=== PATIENT | female | born 1940 | race Caucasian/White ===

== ENCOUNTER 2022-09-05 13:11 | Emergency (ER) | payer OTHER ==
[~2022-09-05] VITALS: Ht 165.1 cm; Wt 68.9 kg
[2022-09-05 15:31] VITALS: BP 110/58
== END 2022-09-05 20:22 | disposition left against medical advice (07) ==
LOC: ER 13:11
DX: M25.562 Pain in left knee (principal); M25.561 Pain in right knee; R94.31 Abnormal electrocardiogram [ECG] [EKG]; Z53.21 Procedure and treatment not carried out due to patient leaving prior to being seen by health care provider; W18.39XA Other fall on same level, initial encounter; Y93.89 Activity, other specified; Y92.89 Other specified places as the place of occurrence of the external cause; Y99.8 Other external cause status
CPT/HCPCS: 73562; 73630; 93005

== ENCOUNTER 2023-08-07 22:19 | Inpatient (IN) | payer OTHER ==
[~2023-08-07] VITALS: Ht 167.6 cm; Wt 69.5 kg
[2023-08-07] MEDS ORDERED: MORPHINE SULFATE INJ 2 MG/ml SYRG IV PRN (23:30)
[2023-08-07] MEDS ORDERED: ACETAMINOPHEN 325 MG TAB PO PRN (23:30)
[2023-08-07] MEDS ORDERED: hydrALAZINE HCL 20 MG/ML VL IV PRN (23:30)
[2023-08-07] MEDS ORDERED: IPRATROPIUM BROM 0.5 MG/2.5ML INH SOL NEB PRN (23:30)
[2023-08-07] MEDS ORDERED: NITROGLYCERIN 0.4 MG SL TAB SL PRN (23:30)
[2023-08-07] MEDS ORDERED: ALBUTEROL SULF 2.5 MG/0.5ML(0.5%) NEB SOLN NEB PRN (23:30)
[2023-08-07] MEDS ORDERED: ONDANSETRON HCL 4 MG/2 ML VIAL IV PRN (23:30)
[2023-08-07] MEDS ORDERED: DOCUSATE SOD 100 MG CAP PO PRN (23:30)
[2023-08-07] MEDS ORDERED: DEXTROSE (50%) 50ML SYRG IV PRN (23:30)
[2023-08-08] VITALS (11 sets, daily range): BP systolic 121–139; BP diastolic 62–73; PULSE 72–92; RESP 16–18; TEMP 97.7–98.7; O2SAT 92–98
[2023-08-08 00:52] LABS: Basophils # (auto) 0.1 10 ^3/uL (0-0.2); Basophils % (auto) 0.5 % (0.0-2.0); Eosinophils # (auto) 0.3 10 ^3/uL (0-0.8); Eosinophils % (auto) 2.6 % (0.0-7.0); Hematocrit 37.3 % (36.0-46.0); Hemoglobin 12.2 g/dL (12.2-16.2); Lymphocytes # (auto) 1.8 10 ^3/uL (0.4-5.4); Lymphocytes % (auto) 16.8 % (10.0-50.0); Mean Corpuscular Hemoglobin 27.8 pg (28.0-32.0); Mean Corpuscular Hgb Conc. 32.6 g/dL (32.0-36.0); Monocytes # (auto) 0.9 10 ^3/uL (0-1.3); Monocytes % (auto) 8.4 % (0.0-12.0); Neutrophils # (auto) 7.9 10 ^3/uL (1.6-8.6); Neutrophils % (auto) 71.7 % (37.0-80.0); Red Blood Cells 4.39 10^6/uL (4.0-5.20); Red Cell Distribution Width 13.3 % (11.8-14.3)
[2023-08-08 01:00] LABS: Chloride 104 mmol/L (98-107); Potassium 4.1 mmol/L (3.5-5.1); Sodium 144 mmol/L (136-145)
[2023-08-08 01:02] LABS: Calcium 9.8 mg/dL (8.5-10.1)
[2023-08-08 01:06] LABS: Glucose 87 mg/dL (74-106)
[2023-08-08 01:07] LABS: BUN/Creatinine Ratio 28.6 (10.0-20.0); Blood Urea Nitrogen 20 mg/dL (9-23)
[2023-08-08 01:57] LABS: Anion Gap 6 (5-15); Carbon Dioxide 34 mmol/L (20-30)
[2023-08-08] MEDS: HYDROcodone-ACET 5/325MG TAB PO PRN ×2 (02:35→10:54)
[2023-08-08] MEDS ORDERED: KETOROLAC TROMETH 30 MG/ML 1ML VIAL IV ONE (06:45)
[2023-08-08] MEDS: InsuLIN REG 1unit/0.01ml Soln (100units/ml) SC SCH ×4 (07:00→22:26)
[2023-08-08] MEDS: ACCU-CHEK COMFORT CURVE STRIP VI SCH ×4 (07:00→22:26)
[2023-08-08] MEDS: ENOXAPARIN SOD 40 MG/0.4 ML SYRINGE SC SCH (10:00)
[2023-08-08] MEDS: GABAPENTIN 100 MG CAP PO SCH ×2 (10:54→22:14)
[2023-08-08] MEDS: ATORVASTATIN 20 MG TAB PO SCH (22:14)
[2023-08-08 22:54] LABS: Urine Bacteria MANY /hpf (None Seen); Urine Blood Negative /uL (Negative); Urine Clarity HAZY (Clear); Urine Color Yellow (Yellow); Urine Protein, UAD Negative (Negative); Urine Specific Gravity 1.017 (1.001-1.035); Urine Urobilinogen Normal (Negative); Urine WBC 117 /hpf (0 - 5)
[2023-08-08 23:40] LABS: COVID19 ANTIGEN SOFIA FIA NEGATIVE (NEGATIVE)
[2023-08-09] VITALS (7 sets, daily range): BP systolic 132–157; BP diastolic 68–76; PULSE 69–87; RESP 18–22; TEMP 97.7–98.4; O2SAT 94–98
[2023-08-09 06:31] LABS: Chloride 103 mmol/L (98-107); Potassium 3.7 mmol/L (3.5-5.1); Sodium 141 mmol/L (136-145)
[2023-08-09 06:32] LABS: Anion Gap 5 (5-15); Calcium 9.6 mg/dL (8.7-10.4); Carbon Dioxide 33 mmol/L (20-30)
[2023-08-09 06:37] LABS: Blood Urea Nitrogen 14 mg/dL (9-23); Glucose 109 mg/dL (74-106)
[2023-08-09] MEDS: InsuLIN REG 1unit/0.01ml Soln (100units/ml) SC SCH ×4 (06:41→20:57)
[2023-08-09] MEDS: ACCU-CHEK COMFORT CURVE STRIP VI SCH ×4 (06:42→21:07)
[2023-08-09 06:54] LABS: Basophils # (auto) 0 10 ^3/uL (0-0.2); Basophils % (auto) 0.6 % (0.0-2.0); Eosinophils # (auto) 0.3 10 ^3/uL (0-0.8); Eosinophils % (auto) 4.1 % (0.0-7.0); Hemoglobin 11.1 g/dL (12.2-16.2); Lymphocytes % (auto) 24.6 % (10.0-50.0); Mean Corpuscular Hemoglobin 27.1 pg (28.0-32.0); Mean Corpuscular Hgb Conc. 31.8 g/dL (32.0-36.0); Mean Corpuscular Volume 85.2 fL (80.0-100.0); Monocytes # (auto) 0.8 10 ^3/uL (0-1.3); Monocytes % (auto) 9.3 % (0.0-12.0); Neutrophils # (auto) 5.1 10 ^3/uL (1.6-8.6); Neutrophils % (auto) 61.4 % (37.0-80.0); Red Blood Cells 4.11 10^6/uL (4.0-5.20); Red Cell Distribution Width 13.2 % (11.8-14.3); White Blood Cell 8.3 10^3/uL (4.4-10.8)
[2023-08-09] MEDS: GABAPENTIN 100 MG CAP PO SCH ×2 (10:45→20:56)
[2023-08-09] MEDS: ENOXAPARIN SOD 40 MG/0.4 ML SYRINGE SC SCH (10:45)
[2023-08-09] MEDS ORDERED: CEFTRIAXONE SODIUM 2 GM in D5W 5% 100 ML IV ONE (12:00)
[2023-08-09] MEDS: HYDROcodone-ACET 5/325MG TAB PO PRN ×2 (12:01→17:39)
[2023-08-09] MEDS: ATORVASTATIN 20 MG TAB PO SCH (20:56)
[2023-08-10 05:00] VITALS: BP 149/72; PULSE 80; RESP 18; TEMP 98.3; O2SAT 99
[2023-08-10 06:07] LABS: Basophils # (auto) 0.1 10 ^3/uL (0-0.2); Basophils % (auto) 0.6 % (0.0-2.0); Eosinophils # (auto) 0.4 10 ^3/uL (0-0.8); Eosinophils % (auto) 3.5 % (0.0-7.0); Lymphocytes % (auto) 9.6 % (10.0-50.0); Mean Corpuscular Hemoglobin 27.4 pg (28.0-32.0); Mean Corpuscular Hgb Conc. 32.3 g/dL (32.0-36.0); Mean Corpuscular Volume 84.8 fL (80.0-100.0); Monocytes # (auto) 0.8 10 ^3/uL (0-1.3); Monocytes % (auto) 8.1 % (0.0-12.0); Neutrophils # (auto) 8.1 10 ^3/uL (1.6-8.6); Neutrophils % (auto) 78.2 % (37.0-80.0); Red Blood Cells 4.01 10^6/uL (4.0-5.20); Red Cell Distribution Width 13.1 % (11.8-14.3); White Blood Cell 10.3 10^3/uL (4.4-10.8)
[2023-08-10 06:12] LABS: Anion Gap 4 (5-15); Carbon Dioxide 35 mmol/L (20-30); Chloride 101 mmol/L (98-107); Potassium 3.5 mmol/L (3.5-5.1); Sodium 140 mmol/L (136-145)
[2023-08-10 06:13] LABS: Calcium 9.3 mg/dL (8.7-10.4)
[2023-08-10] MEDS: ACCU-CHEK COMFORT CURVE STRIP VI SCH ×3 (06:17→17:37)
[2023-08-10] MEDS: InsuLIN REG 1unit/0.01ml Soln (100units/ml) SC SCH ×3 (06:17→17:45)
[2023-08-10 06:18] LABS: BUN/Creatinine Ratio 26.1 (10.0-20.0); Blood Urea Nitrogen 18 mg/dL (9-23); Glucose 172 mg/dL (74-106)
[2023-08-10 08:20] VITALS: PULSE 73
[2023-08-10 08:45] VITALS: BP 146/66; PULSE 81; RESP 20; TEMP 98.6; O2SAT 97
[2023-08-10] MEDS ORDERED: cefTRIAXone 1GM/50ML D5W 50 ML IV SCH (09:00)
[2023-08-10] MEDS: GABAPENTIN 100 MG CAP PO SCH (10:03)
[2023-08-10] MEDS: ENOXAPARIN SOD 40 MG/0.4 ML SYRINGE SC SCH (10:04)
[2023-08-10] MEDS: HYDROcodone-ACET 5/325MG TAB PO PRN (10:13)
[2023-08-10] MEDS ORDERED: CIPR500T4 PO (11:14)
[2023-08-10] MEDS ORDERED: ACET-1304 PO (11:14)
[2023-08-10] MEDS ORDERED: GAB100C PO (11:14)
[2023-08-10 12:30] VITALS: BP 129/62; PULSE 79; RESP 20; TEMP 98.3; O2SAT 99
[2023-08-10 16:20] VITALS: BP 120/73; PULSE 82; RESP 20; TEMP 98.4; O2SAT 98
== END 2023-08-10 20:45 | disposition home health service (06) | DRG 690 ==
LOC: TELE-CENTR 23:39
PROVIDERS: ADMIT Nurse Practitioner Family; ATTEND Hospitalist
PROC: 4B02XSZ Measurement of Cardiac Pacemaker, External Approach (ICD-10-PCS; principal; 2023-08-09)
DX: N39.0 Urinary tract infection, site not specified (principal); M54.6 Pain in thoracic spine; E11.9 Type 2 diabetes mellitus without complications; I10 Essential (primary) hypertension; J44.9 Chronic obstructive pulmonary disease, unspecified; R55 Syncope and collapse; Z88.6 Allergy status to analgesic agent; Z95.0 Presence of cardiac pacemaker; Z20.822 Contact with and (suspected) exposure to COVID-19
CPT/HCPCS: 36415; 80048; 81001; 82962; 84484; 85025; 87086; 87426; 93306; 97110; 97116; 97530; G0378; J0696; J1815; J7060

== ENCOUNTER 2023-08-21 12:13 | Inpatient (IN) | payer OTHER ==
[~2023-08-21] VITALS: Ht 167.6 cm; Wt 63.0 kg
[2023-08-21] VITALS (7 sets, daily range): BP systolic 124–133; BP diastolic 67–74; PULSE 86–98; RESP 16–24; TEMP 98.9; O2SAT 93–99
[~2023-08-21 12:13] MED LIST: ACET-1304 PO; CIPR500T4 PO; GAB100C PO
[2023-08-21 13:02] LABS: COVID19 ANTIGEN SOFIA FIA NEGATIVE (NEGATIVE); Rapid Influenza A Negative (Negative); Rapid Influenza B Negative (Negative)
[2023-08-21 13:26] LABS: Hemoglobin 13.3 g/dL (12.2-16.2)
[2023-08-21 13:28] LABS: Hematocrit 42.4 % (36.0-46.0); Mean Corpuscular Hemoglobin 26.8 pg (28.0-32.0); Mean Corpuscular Hgb Conc. 31.3 g/dL (32.0-36.0); Mean Corpuscular Volume 85.6 fL (80.0-100.0); Red Blood Cells 4.95 10^6/uL (4.0-5.20); Red Cell Distribution Width 13.5 % (11.8-14.3); White Blood Cell 27.8 10^3/uL (4.4-10.8)
[2023-08-21 13:46] LABS: Albumin 4.4 g/dL (3.2-4.8); Alkaline Phosphatase 71 U/L (46-116); Anion Gap 7 (5-15); Aspartate Aminotransferase 16 U/L (13-40); BUN/Creatinine Ratio 21.1 (10.0-20.0); Basophils % (manual) 0 (0.0-2.0); Bilirubin, Total 0.6 mg/dL (0.2-1.0); Blast Cells 0; Blood Urea Nitrogen 19 mg/dL (9-23); Calcium 9.6 mg/dL (8.5-10.1); Carbon Dioxide 32 mmol/L (20-30); Chloride 101 mmol/L (98-107); Eosinophils % (manual) 0 (0-7); Glucose 285 mg/dL (74-106); Metamyelocytes % 0; Myelocytes % 0; Potassium 3.8 mmol/L (3.5-5.1); Promyelocytes % 0; Reactive Lymphocytes 0; Sodium 140 mmol/L (136-145)
[2023-08-21 13:47] LABS: Total Protein 6.8 g/dL (5.7-8.2)
[2023-08-21 13:49] LABS: Alanine Aminotransferase < 9 U/L (7-40)
[2023-08-21 13:50] LABS: Lactic Acid w/Reflex 2.1 mmol/L (0.4-2.0)
[2023-08-21 14:36] LABS: Band Neutrophils % (manual) 3; Lymphocytes % (manual) 6 (10.0-50.0); Monocytes % (manual) 8 (0-12); Platelet Estimate Adequate
[2023-08-21] MEDS ORDERED: AZITHROMYCIN 500MG/ 250ML 250 ML IV ONE (14:45)
[2023-08-21] MEDS ORDERED: SODIUM CHLORIDE 0.9% 1,000 ML IV ONE ×2 (14:45)
[2023-08-21] MEDS ORDERED: cefTRIAXone 1GM/50ML D5W 50 ML IV ONE (14:45)
[2023-08-21] MEDS ORDERED: DEXTROSE (50%) 50ML SYRG IV PRN (16:45)
[2023-08-21] MEDS ORDERED: ONDANSETRON HCL 4 MG/2 ML VIAL IV PRN (16:45)
[2023-08-21] MEDS ORDERED: MORPHINE SULFATE INJ 2 MG/ml SYRG IV PRN (16:45)
[2023-08-21] MEDS ORDERED: NITROGLYCERIN 0.4 MG SL TAB SL PRN (16:45)
[2023-08-21] MEDS: SOD CHL 0.45% 1,000 ML IV SCH (16:45)
[2023-08-21] MEDS ORDERED: IOHEXOL 350 MG/ML 100ML IJ ONE (17:05)
[2023-08-21] MEDS: DexAMETHasone SOD PHOS 4 MG/1ML SDV INJ IV SCH (17:25)
[2023-08-21] MEDS: PIPERACILLIN-TAZOB 3.375GM 100 ML IV SCH (17:25)
[2023-08-21 17:26] LABS: INR 1.11 (0.9-1.15); Partial Thromboplastin Time 32.7 SEC (24.5-34.5); Prothrombin Time 11.6 sec (9.3-11.8)
[2023-08-21] MEDS: InsuLIN REG 1unit/0.01ml Soln (100units/ml) SC SCH ×2 (18:00→23:55)
[2023-08-21] MEDS: ACCU-CHEK COMFORT CURVE STRIP VI SCH ×2 (18:00→23:49)
[2023-08-21] MEDS: ALBUTEROL MEDNEB 2.5 mg/3ml NEB NEB SCH (18:00)
[2023-08-21] MEDS: IPRATROPIUM BROM 0.5 MG/2.5ML INH SOL NEB SCH (18:00)
[2023-08-21] MEDS: BUDESONIDE (INHALATION) 0.5 MG/2 ML NEB NEB SCH (18:45)
[2023-08-21] MEDS ORDERED: GABA-1251 PO (23:23)
[2023-08-21] MEDS ORDERED: METF-371 PO (23:23)
[2023-08-21] MEDS ORDERED: ACET-6 PO (23:23)
[2023-08-21] MEDS ORDERED: AZIT-43 PO (23:23)
[2023-08-21] MEDS ORDERED: PRED10TA PO (23:23)
[2023-08-21] MEDS ORDERED: ALBU108A5 INH (23:23)
[2023-08-21] MEDS ORDERED: AMOX500C2 PO (23:23)
[2023-08-21] MEDS: GABAPENTIN 100 MG CAP PO SCH (23:49)
[2023-08-21] MEDS: INSULIN LANTUS (GLARGINE) 1 /0.01ml (100units/ml) SC SCH (23:54)
[2023-08-22] VITALS (13 sets, daily range): BP systolic 117–128; BP diastolic 55–59; PULSE 66–91; RESP 16–20; TEMP 97.8–98.1; O2SAT 93–100
[2023-08-22] MEDS: DexAMETHasone SOD PHOS 4 MG/1ML SDV INJ IV SCH ×3 (01:11→17:12)
[2023-08-22] MEDS: PIPERACILLIN-TAZOB 3.375GM 100 ML IV SCH ×3 (01:16→18:04)
[2023-08-22] MEDS ORDERED: DEXTROSE (50%) 50ML SYRG IV PRN ×2 (01:45→02:00)
[2023-08-22] MEDS ORDERED: IOHEXOL 350 MG/ML 100ML IJ ONE (02:24)
[2023-08-22] MEDS: ACCU-CHEK COMFORT CURVE STRIP VI SCH ×4 (06:11→22:08)
[2023-08-22] MEDS: InsuLIN REG 1unit/0.01ml Soln (100units/ml) SC SCH ×4 (06:12→22:30)
[2023-08-22] MEDS ORDERED: ACCU-CHEK COMFORT CURVE STRIP VI SCH (07:00)
[2023-08-22] MEDS ORDERED: InsuLIN REG 1unit/0.01ml Soln (100units/ml) SC SCH (07:00)
[2023-08-22] MEDS: IPRATROPIUM BROM 0.5 MG/2.5ML INH SOL NEB SCH ×3 (07:56→19:09)
[2023-08-22] MEDS: ALBUTEROL MEDNEB 2.5 mg/3ml NEB NEB SCH ×3 (07:56→19:12)
[2023-08-22] MEDS: BUDESONIDE (INHALATION) 0.5 MG/2 ML NEB NEB SCH ×2 (07:56→19:12)
[2023-08-22] MEDS: ENOXAPARIN SOD 40 MG/0.4 ML SYRINGE SC SCH (09:25)
[2023-08-22] MEDS: FAMOTIDINE 20 MG TAB PO SCH (09:25)
[2023-08-22] MEDS: GABAPENTIN 100 MG CAP PO SCH ×2 (09:25→22:08)
[2023-08-22] MEDS: SOD CHL 0.45% 1,000 ML IV SCH ×2 (09:30→19:25)
[2023-08-22] MEDS: MUPIROCIN 2% OINT 15gm or 22gm FOR MRSA NARES EACHNOSTRI SCH (22:10)
[2023-08-22] MEDS: INSULIN LANTUS (GLARGINE) 1 /0.01ml (100units/ml) SC SCH (22:26)
[2023-08-23] VITALS (14 sets, daily range): BP systolic 112–133; BP diastolic 43–61; PULSE 62–103; RESP 17–22; TEMP 97.3–98.2; O2SAT 90–100
[2023-08-23] MEDS ORDERED: DEXTROSE (50%) 50ML SYRG IV PRN (00:45)
[2023-08-23] MEDS: DexAMETHasone SOD PHOS 4 MG/1ML SDV INJ IV SCH ×3 (01:23→17:43)
[2023-08-23] MEDS: PIPERACILLIN-TAZOB 3.375GM 100 ML IV SCH ×3 (02:06→17:43)
[2023-08-23] MEDS: ACCU-CHEK COMFORT CURVE STRIP VI SCH ×6 (04:05→23:13)
[2023-08-23] MEDS: InsuLIN REG 1unit/0.01ml Soln (100units/ml) SC SCH ×6 (04:15→23:34)
[2023-08-23] MEDS: IPRATROPIUM BROM 0.5 MG/2.5ML INH SOL NEB SCH ×4 (06:44→19:58)
[2023-08-23] MEDS: ALBUTEROL MEDNEB 2.5 mg/3ml NEB NEB SCH ×4 (06:44→19:58)
[2023-08-23] MEDS: BUDESONIDE (INHALATION) 0.5 MG/2 ML NEB NEB SCH ×2 (06:44→19:57)
[2023-08-23] MEDS: FAMOTIDINE 20 MG TAB PO SCH (09:08)
[2023-08-23] MEDS: ENOXAPARIN SOD 40 MG/0.4 ML SYRINGE SC SCH (09:08)
[2023-08-23] MEDS: GABAPENTIN 100 MG CAP PO SCH ×2 (09:08→23:32)
[2023-08-23] MEDS: MUPIROCIN 2% OINT 15gm or 22gm FOR MRSA NARES EACHNOSTRI SCH ×2 (09:10→22:00)
[2023-08-23] MEDS: SOD CHL 0.45% 1,000 ML IV SCH ×2 (12:12→22:05)
[2023-08-23 15:22] LABS: Urine Bacteria NONE SEEN /hpf (None Seen); Urine Blood Negative /uL (Negative); Urine Clarity HAZY (Clear); Urine Color Colorless (Yellow); Urine Protein, UAD TRACE (Negative); Urine Specific Gravity 1.035 (1.001-1.035); Urine Urobilinogen Normal (Negative); Urine WBC 5 /hpf (0 - 5); Urine pH 5.5 (5.0-8.0)
[2023-08-23] MEDS: INSULIN LANTUS (GLARGINE) 1 /0.01ml (100units/ml) SC SCH (23:34)
[2023-08-24] VITALS (11 sets, daily range): BP systolic 107–143; BP diastolic 37–92; PULSE 64–82; RESP 16–21; TEMP 97.7–98.3; O2SAT 95–99
[2023-08-24] MEDS: DexAMETHasone SOD PHOS 4 MG/1ML SDV INJ IV SCH ×4 (03:22→17:51)
[2023-08-24] MEDS: PIPERACILLIN-TAZOB 3.375GM 100 ML IV SCH ×3 (03:22→09:55)
[2023-08-24] MEDS: ACCU-CHEK COMFORT CURVE STRIP VI SCH ×5 (03:23→17:49)
[2023-08-24] MEDS: InsuLIN REG 1unit/0.01ml Soln (100units/ml) SC SCH ×5 (05:53→17:51)
[2023-08-24] MEDS: BUDESONIDE (INHALATION) 0.5 MG/2 ML NEB NEB SCH (06:49)
[2023-08-24] MEDS: ALBUTEROL MEDNEB 2.5 mg/3ml NEB NEB SCH ×3 (06:49→18:00)
[2023-08-24] MEDS: IPRATROPIUM BROM 0.5 MG/2.5ML INH SOL NEB SCH ×3 (06:49→18:00)
[2023-08-24] MEDS: GABAPENTIN 100 MG CAP PO SCH (09:55)
[2023-08-24] MEDS: ENOXAPARIN SOD 40 MG/0.4 ML SYRINGE SC SCH (09:55)
[2023-08-24] MEDS: FAMOTIDINE 20 MG TAB PO SCH (09:55)
[2023-08-24] MEDS: MUPIROCIN 2% OINT 15gm or 22gm FOR MRSA NARES EACHNOSTRI SCH (09:57)
[2023-08-24] MEDS: SOD CHL 0.45% 1,000 ML IV SCH (11:25)
[2023-08-24] MEDS ORDERED: PRED20TA2 PO (11:37)
[2023-08-24] MEDS ORDERED: DOXY-447 PO (11:37)
[2023-08-24] MEDS ORDERED: IPRA0.00 IN (11:37)
[2023-08-24] MEDS ORDERED: MUPI2OIN2 EACHNOSTRI (11:37)
== END 2023-08-24 19:00 | disposition home or self-care (01) | DRG 177 ==
LOC: EDBD 12:13 → ER 12:13 → TELE 16:46 → TELE-CENTR 16:46
PROVIDERS: ADMIT Hospitalist; ATTEND Hospitalist
DX: J15.69 Pneumonia due to other Gram-negative bacteria (principal); J96.21 Acute and chronic respiratory failure with hypoxia; J44.0 Chronic obstructive pulmonary disease with (acute) lower respiratory infection; J44.1 Chronic obstructive pulmonary disease with (acute) exacerbation; J15.9 Unspecified bacterial pneumonia; I10 Essential (primary) hypertension; E11.9 Type 2 diabetes mellitus without complications; J43.9 Emphysema, unspecified; Z20.822 Contact with and (suspected) exposure to COVID-19; R55 Syncope and collapse; Z90.710 Acquired absence of both cervix and uterus; Z90.49 Acquired absence of other specified parts of digestive tract
CPT/HCPCS: 36415; 71045; 71275; 80053; 81001; 82962; 83605; 85007; 85025; 85027; 85610; 85730; 87040; 87081; 87426; 87804; 93005; 94640; 96365; 97110; 97116; 97163; 97530; G0378; J0696; J1100; J1815; J2543

== ENCOUNTER 2023-10-01 00:43 | Inpatient (IN) | payer OTHER ==
[2023-09-30 04:45] VITALS: BP 98/68; PULSE 98; RESP 18; TEMP 98.4
[~2023-10-01] VITALS: Ht 152.4 cm; Wt 64.2 kg
[2023-10-01] VITALS (18 sets, daily range): BP systolic 94–140; BP diastolic 51–69; PULSE 71–141; RESP 16–20; TEMP 97.3–98.7; O2SAT 90–99
[~2023-10-01 00:43] MED LIST changes: -ACET-1304 PO; +ACET-6 PO; +ALBU108A5 INH; -CIPR500T4 PO; +DOXY-447 PO; -GAB100C PO; +GABA-1251 PO; +IPRA0.00 IN; +METF-371 PO; +MUPI2OIN2 EACHNOSTRI; +PRED20TA2 PO
[2023-10-01] MEDS ORDERED: VANCOMYCIN PER PHARMACY 0 MG IV SCH (05:15)
[2023-10-01] MEDS ORDERED: DEXTROSE (50%) 50ML SYRG IV PRN ×2 (05:15→22:30)
[2023-10-01] MEDS ORDERED: ACETAMINOPHEN 325 MG TAB PO PRN (05:15)
[2023-10-01] MEDS ORDERED: HYDROcodone-ACET 5/325MG TAB PO PRN (05:15)
[2023-10-01] MEDS: SODIUM CHLORIDE 0.9% 1,000 ML IV SCH ×2 (05:15→21:37)
[2023-10-01] MEDS ORDERED: ONDANSETRON HCL 4 MG/2 ML VIAL IV PRN (05:15)
[2023-10-01] MEDS ORDERED: MILK OF MAGNESIA 30ML SUSP PO PRN (05:15)
[2023-10-01] MEDS ORDERED: hydrALAZINE HCL 10 MG TAB PO PRN (05:15)
[2023-10-01] MEDS ORDERED: MORPHINE SULFATE INJ 2 MG/ml SYRG IV PRN (05:15)
[2023-10-01] MEDS: cefTRIAXone 1GM/50ML D5W 50 ML IV SCH (05:53)
[2023-10-01] MEDS ORDERED: VANCOMYCIN 1GM/200ML 200 ML IV ONE ×2 (06:00→11:15)
[2023-10-01] MEDS: methylPREDNISolone SOD SUCC 40 MG/ML VL IV SCH ×2 (06:08→21:31)
[2023-10-01] MEDS: ACCU-CHEK COMFORT CURVE STRIP VI SCH ×4 (06:11→21:25)
[2023-10-01] MEDS: InsuLIN REG 1unit/0.01ml Soln (100units/ml) SC SCH ×4 (06:11→21:30)
[2023-10-01 07:09] LABS: INR 1.06 (0.9-1.15); Prothrombin Time 11.1 sec (9.3-11.8)
[2023-10-01] MEDS: LEVALBUTEROL HCL 1.25 MG/3 ML NEB NEB SCH ×4 (07:28→23:45)
[2023-10-01 11:06] LABS: Chloride 106 mmol/L (98-107); Potassium 4.4 mmol/L (3.5-5.1); Sodium 142 mmol/L (136-145)
[2023-10-01 11:07] LABS: Anion Gap 8 (5-15); Carbon Dioxide 28 mmol/L (20-30)
[2023-10-01 11:08] LABS: Calcium 9.3 mg/dL (8.5-10.1)
[2023-10-01 11:12] LABS: BUN/Creatinine Ratio 40.9 (10.0-20.0); Blood Urea Nitrogen 27 mg/dL (9-23); Glucose 305 mg/dL (74-106)
[2023-10-01 11:23] LABS: Hematocrit 31.4 % (36.0-46.0); Hemoglobin 10.1 g/dL (12.2-16.2); Mean Corpuscular Volume 84.4 fL (80.0-100.0); Red Blood Cells 3.72 10^6/uL (4.0-5.20); Red Cell Distribution Width 14.9 % (11.8-14.3); White Blood Cell 15.5 10^3/uL (4.4-10.8)
[2023-10-01 11:25] LABS: Band Neutrophils % (manual) 0; Basophils % (manual) 0 (0.0-2.0); Blast Cells 0; Eosinophils % (manual) 0 (0-7); Metamyelocytes % 0; Monocytes % (manual) 0 (0-12); Myelocytes % 0; Promyelocytes % 0; Reactive Lymphocytes 0
[2023-10-01 11:38] LABS: Lymphocytes % (manual) 2 (10.0-50.0); Platelet Estimate Adequate
[2023-10-01] MEDS: FUROSEMIDE 20 MG/2 ML VIAL IV SCH (18:28)
[2023-10-01] MEDS: POTASSIUM CHLORIDE 8 MEQ TAB PO SCH (21:31)
[2023-10-01] MEDS ORDERED: InsuLIN REG 1unit/0.01ml Soln (100units/ml) SC ONE (23:00)
[2023-10-01] MEDS ORDERED: ACCU-CHEK COMFORT CURVE STRIP VI SCH (23:00)
[2023-10-02] VITALS (11 sets, daily range): BP systolic 123–145; BP diastolic 56–68; PULSE 78–106; RESP 18–21; TEMP 97.5–98.8; O2SAT 91–99
[2023-10-02] MEDS: LEVALBUTEROL HCL 1.25 MG/3 ML NEB NEB SCH ×4 (06:20→19:21)
[2023-10-02] MEDS: ACCU-CHEK COMFORT CURVE STRIP VI SCH ×4 (06:25→21:17)
[2023-10-02] MEDS: FUROSEMIDE 20 MG/2 ML VIAL IV SCH ×2 (06:25→18:03)
[2023-10-02 06:29] LABS: Chloride 106 mmol/L (98-107); Potassium 3.5 mmol/L (3.5-5.1); Sodium 142 mmol/L (136-145)
[2023-10-02 06:30] LABS: Anion Gap 7 (5-15); Calcium 9.6 mg/dL (8.5-10.1); Carbon Dioxide 29 mmol/L (20-30)
[2023-10-02 06:31] LABS: Hemoglobin 9.2 g/dL (12.2-16.2)
[2023-10-02] MEDS: InsuLIN REG 1unit/0.01ml Soln (100units/ml) SC SCH ×4 (06:32→21:17)
[2023-10-02 06:33] LABS: Hematocrit 29.1 % (36.0-46.0); Mean Corpuscular Hemoglobin 26.6 pg (28.0-32.0); Mean Corpuscular Hgb Conc. 31.6 g/dL (32.0-36.0); Mean Corpuscular Volume 84.2 fL (80.0-100.0); Red Blood Cells 3.46 10^6/uL (4.0-5.20); Red Cell Distribution Width 14.7 % (11.8-14.3); White Blood Cell 14.5 10^3/uL (4.4-10.8)
[2023-10-02 06:35] LABS: BUN/Creatinine Ratio 43.9 (10.0-20.0); Blood Urea Nitrogen 36 mg/dL (9-23)
[2023-10-02 06:56] LABS: Glucose 423 mg/dL (74-106)
[2023-10-02 07:05] LABS: Basophils % (manual) 0 (0.0-2.0); Blast Cells 0; Eosinophils % (manual) 0 (0-7); Lymphocytes % (manual) 0 (10.0-50.0); Metamyelocytes % 0; Myelocytes % 0; Promyelocytes % 0; Reactive Lymphocytes 0
[2023-10-02] MEDS: SODIUM CHLORIDE 0.9% 1,000 ML IV SCH (07:55)
[2023-10-02] MEDS: cefTRIAXone 1GM/50ML D5W 50 ML IV SCH (09:41)
[2023-10-02] MEDS: methylPREDNISolone SOD SUCC 40 MG/ML VL IV SCH ×2 (09:41→21:11)
[2023-10-02] MEDS: POTASSIUM CHLORIDE 8 MEQ TAB PO SCH ×2 (09:41→21:10)
[2023-10-02 10:05] LABS: Band Neutrophils % (manual) 3; Monocytes % (manual) 4 (0-12); Platelet Estimate Adequate
[2023-10-02] MEDS: VANCOMYCIN 1GM/200ML 200 ML IV SCH (10:42)
[2023-10-02] MEDS ORDERED: IPRAAER6 NEB (12:21)
[2023-10-02] MEDS ORDERED: SIMV20TA20 PO (12:24)
[2023-10-02] MEDS ORDERED: POTA10TA51 PO (12:24)
[2023-10-02] MEDS ORDERED: LOPE2CAP PO (12:24)
[2023-10-02] MEDS ORDERED: GLIM2TAB33 PO (12:24)
[2023-10-02] MEDS ORDERED: POTA-228 PO (12:29)
[2023-10-03] VITALS (15 sets, daily range): BP systolic 109–159; BP diastolic 56–68; PULSE 75–103; RESP 16–20; TEMP 97.3–98.2; O2SAT 90–100
[2023-10-03] MEDS: LEVALBUTEROL HCL 1.25 MG/3 ML NEB NEB SCH ×4 (00:58→18:00)
[2023-10-03] MEDS: FUROSEMIDE 20 MG/2 ML VIAL IV SCH (06:37)
[2023-10-03] MEDS: InsuLIN REG 1unit/0.01ml Soln (100units/ml) SC SCH ×4 (06:46→21:52)
[2023-10-03] MEDS: ACCU-CHEK COMFORT CURVE STRIP VI SCH ×4 (06:46→21:51)
[2023-10-03 06:53] LABS: Basophils # (auto) 0 10 ^3/uL (0-0.2); Eosinophils # (auto) 0 10 ^3/uL (0-0.8); Hematocrit 29.6 % (36.0-46.0); Hemoglobin 9.2 g/dL (12.2-16.2); Lymphocytes # (auto) 0.3 10 ^3/uL (0.4-5.4); Lymphocytes % (auto) 2.1 % (10.0-50.0); Mean Corpuscular Hemoglobin 26.4 pg (28.0-32.0); Mean Corpuscular Hgb Conc. 31.2 g/dL (32.0-36.0); Mean Corpuscular Volume 84.7 fL (80.0-100.0); Monocytes # (auto) 0.7 10 ^3/uL (0-1.3); Neutrophils # (auto) 15.3 10 ^3/uL (1.6-8.6); Neutrophils % (auto) 93.9 % (37.0-80.0); White Blood Cell 16.3 10^3/uL (4.4-10.8)
[2023-10-03 07:08] LABS: Chloride 107 mmol/L (98-107); Potassium 4.2 mmol/L (3.5-5.1); Sodium 142 mmol/L (136-145)
[2023-10-03 07:09] LABS: Anion Gap 5 (5-15); Calcium 9.2 mg/dL (8.5-10.1); Carbon Dioxide 30 mmol/L (20-30)
[2023-10-03 07:14] LABS: BUN/Creatinine Ratio 48.1 (10.0-20.0); Blood Urea Nitrogen 37 mg/dL (9-23); Glucose 372 mg/dL (74-106)
[2023-10-03] MEDS: methylPREDNISolone SOD SUCC 40 MG/ML VL IV SCH (09:56)
[2023-10-03] MEDS: POTASSIUM CHLORIDE 8 MEQ TAB PO SCH (09:56)
[2023-10-03] MEDS: cefTRIAXone 1GM/50ML D5W 50 ML IV SCH (09:56)
[2023-10-03] MEDS: VANCOMYCIN 1GM/200ML 200 ML IV SCH (12:00)
[2023-10-04] VITALS (13 sets, daily range): BP systolic 124–155; BP diastolic 61–75; PULSE 62–103; RESP 16–20; TEMP 36.9; O2SAT 89–100
[2023-10-04] MEDS: ACCU-CHEK COMFORT CURVE STRIP VI SCH ×2 (06:03→11:10)
[2023-10-04] MEDS: InsuLIN REG 1unit/0.01ml Soln (100units/ml) SC SCH ×2 (06:03→11:14)
[2023-10-04 07:10] LABS: Mean Corpuscular Hemoglobin 26.7 pg (28.0-32.0)
[2023-10-04 07:12] LABS: Hematocrit 31.8 % (36.0-46.0); Mean Corpuscular Hgb Conc. 31.5 g/dL (32.0-36.0); Mean Corpuscular Volume 84.8 fL (80.0-100.0); Red Blood Cells 3.75 10^6/uL (4.0-5.20); Red Cell Distribution Width 14.9 % (11.8-14.3)
[2023-10-04 07:24] LABS: Basophils % (manual) 0 (0.0-2.0); Blast Cells 0; Eosinophils % (manual) 0 (0-7); Myelocytes % 0; Promyelocytes % 0; Reactive Lymphocytes 0
[2023-10-04 07:35] LABS: Anion Gap 7 (5-15); Calcium 9.1 mg/dL (8.5-10.1); Carbon Dioxide 29 mmol/L (20-30); Chloride 106 mmol/L (98-107); Potassium 3.9 mmol/L (3.5-5.1); Sodium 142 mmol/L (136-145)
[2023-10-04 07:41] LABS: BUN/Creatinine Ratio 56.1 (10.0-20.0); Blood Urea Nitrogen 37 mg/dL (9-23); Glucose 191 mg/dL (74-106)
[2023-10-04 07:52] LABS: Band Neutrophils % (manual) 3; Lymphocytes % (manual) 8 (10.0-50.0); Metamyelocytes % 1; Monocytes % (manual) 9 (0-12)
[2023-10-04 07:53] LABS: Anisocytosis Slight; Hypochromia Slight; Platelet Estimate Adequate
[2023-10-04] MEDS: LEVALBUTEROL HCL 1.25 MG/3 ML NEB NEB SCH ×3 (08:00→13:30)
[2023-10-04] MEDS: cefTRIAXone 1GM/50ML D5W 50 ML IV SCH (10:12)
[2023-10-04] MEDS ORDERED: guaiFENesin 200 MG/10 ML UD PO PRN (12:00)
[2023-10-04] MEDS ORDERED: FURO1TAB31 PO (13:13)
[2023-10-04] MEDS ORDERED: PRED20TA2 PO (13:13)
[2023-10-04] MEDS ORDERED: AMOX500T86 PO (13:13)
[2023-10-04] MEDS ORDERED: IPRAAER6 NEB (13:13)
== END 2023-10-04 17:07 | disposition home or self-care (01) | DRG 193 ==
LOC: TELE-WESTW 03:40
PROVIDERS: ADMIT Nurse Practitioner Family; ATTEND Hospitalist
DX: J15.9 Unspecified bacterial pneumonia (principal); J96.01 Acute respiratory failure with hypoxia; I42.9 Cardiomyopathy, unspecified; J44.1 Chronic obstructive pulmonary disease with (acute) exacerbation; N39.0 Urinary tract infection, site not specified; E11.9 Type 2 diabetes mellitus without complications; E78.5 Hyperlipidemia, unspecified; Z95.0 Presence of cardiac pacemaker; I11.0 Hypertensive heart disease with heart failure; I50.9 Heart failure, unspecified; Z87.891 Personal history of nicotine dependence; Z99.81 Dependence on supplemental oxygen; M19.90 Unspecified osteoarthritis, unspecified site; R55 Syncope and collapse
CPT/HCPCS: 36415; 71045; 76604; 80048; 82962; 83036; 84484; 85007; 85025; 85027; 85610; 87040; 87081; 94640; 97110; 97116; 97163; 97530; G0378; J1815